=== PATIENT | female | born 1985 | race Caucasian/White ===

== ENCOUNTER → 2018-12-31 | Outpatient (CLI) | payer OTHER ==
--- NOTE | 2019-01-01 07:44 | MM ---
Reason for exam: clinical finding. Indicated problem(s): pain in both breasts. Physical Findings: Nurse did not find any significant physical abnormalities on exam. MG 3D Diag Mammo W/Cad JARED Bilateral CC and MLO view(s) were taken. The breast tissue is heterogeneously dense. This may lower the sensitivity of mammography. Tiny nodularity in the left axilla. There is no discrete abnormality. These results were verbally communicated with the patient and result sheet given to the patient on 12/31/18. ASSESSMENT: Negative, BI-RAD 1 RECOMMENDATION: Routine screening mammogram of both breasts at age 40. Manage on a clinical basis with regard to bilateral breast pain.
== END | disposition home or self-care (01) ==
LOC: RADMAMWWP 14:17
PROVIDERS: ATTEND Internal Medicine
DX: N64.4 Mastodynia (principal)
CPT/HCPCS: 77062; 77066

== ENCOUNTER → 2021-08-04 | Outpatient (CLI) | payer OTHER ==
--- NOTE | 2021-08-05 06:42 | MR ---
EXAMINATION TYPE: MR liver wo/w con DATE OF EXAM: 08/04/2021 COMPARISON: None HISTORY: No prior, hepatomegaly, frequent bowel movements CONTRAST: Standard multiplanar, multisequence MRI departmental protocol images were obtained without contrast a nd with 10 mL intravenous Gadavist gadolinium contrast. Liver has normal size. The bile ducts are not dilated. Liver measures 18 cm in length. There is rounded 3 cm mass in the inferior right lobe of the liver. This shows progressive nodular en hancement on the delayed contrast images and consistent with hemangioma. The bile ducts are not dilat ed. Gallbladder appears normal. There is no evidence of pancreatic mass. Spleen is intact. The pancre atic duct appears normal. There is normal enhancement of the kidneys. There is normal enhancement of the portal venous system. There is no evidence of ascites. There is no adrenal mass. There is no sign of pleural effusion. Hear t size is normal. IMPRESSION: There is a hemangioma in the inferior right lobe of the liver. Liver has normal size.
== END | disposition home or self-care (01) ==
LOC: RADMRIMAIN 08:03
PROVIDERS: ATTEND Internal Medicine
DX: D18.00 Hemangioma unspecified site (principal)
CPT/HCPCS: 74183; A9585

== ENCOUNTER → 2022-05-21 | Outpatient (CLI) | payer OTHER ==
--- NOTE | 2022-05-22 07:18 | US ---
EXAMINATION TYPE: US transvaginal DATE OF EXAM: 05/21/2022 COMPARISON: NONE CLINICAL HISTORY: N92.0 EXCESSIVE AND FREQUENT MENSTRUATION WITH REG. Excessive bleeding on menses. G 2P2. TECHNIQUE: . Transvaginal sonographic images of the pelvis were acquired. Date of LMP: Mid april EXAM MEASUREMENTS: Uterus: 11.9 x 7.3 x 5.1 cm Endometrial Stripe: 1.3 cm Right Ovary: 2.4 x 1.8 x 2.1 cm Left Ovary: 3.5 x 2.2 x 2.1 cm 1. Uterus: Anteverted Thickening of posterior myometrium. Possible fibroid measuring 5.1 x 4.3 x 3 .4cm. Multiple nabothian cysts visualized in cervix 2. Endometrium: wnl 3. Right Ovary: wnl 4. Left Ovary: wnl 5. Bilateral Adnexa: wnl 6. Posterior cul-de-sac: wnl IMPRESSION: 1. No evidence of acute process. 2. Suspected uterine fibroid in the posterior fundus. 3. Ovaries have a normal morphologic appearance.
== END | disposition home or self-care (01) ==
LOC: RADUSWWP 16:51
PROVIDERS: ATTEND Obstetrics & Gynecology
DX: N92.0 Excessive and frequent menstruation with regular cycle (principal)
CPT/HCPCS: 76830

== ENCOUNTER 2022-07-09 05:53 | Day surgery (SDC) | payer OTHER ==
--- NOTE | 2022-07-08 12:52 | P.HPOB ---
History of Present Illness H&P Date: 07/08/22 Chief Complaint: Menorrhagia This patient is a pleasant 36 yr female who is presenting for an endometrial ablation secondary to menorrhagia. She has had a long history of heavy menstrual bleeding. Pelvic ultrasound demonstrated a 5 cm posterior fibroid, but normal endometrial cavity. She does not want hormone therapy and is requesting trial of ablation for treatment. has had a vasectomy and she is done having children. Review of Systems Genitourinary: Reports as per HPI Menstruation: Reports period heavy Past Medical History Past Medical History: GERD/Reflux Additional Past Medical History / Comment(s): heavy periods. occasional heartburn. History of Any Multi-Drug Resistant Organisms: None Reported Additional Past Surgical History / Comment(s): left wrist bone spur removal. wisdon teeth Past Anesthesia/Blood Transfusion Reactions: No Reported Reaction Additional Past Anesthesia/Blood Transfusion Reaction / Comment(s): no blood transfusions Past Psychological History: No Psychological Hx Reported Smoking Status: Former smoker Past Alcohol Use History: None Reported Past Drug Use History: None Reported - Past Family History Father Family Medical History: No Reported History Medications and Allergies Home Medications Medication Instructions Recorded Confirmed Type No Known Home Medications 07/05/22 07/05/22 History Allergies Allergy/AdvReac Type Severity Reaction Status Date / Time No Known Allergies Allergy Verified 07/05/22 08:07 Exam - OBG Physical Exam Abdomen: bowel sounds normal, no diffuse tenderness, no bruit present, no guarding noted, no hepatomegaly, no splenomegaly, no mass Vulva: both: normal Vagina: normal moisture, no discharge Cervix: no lesion, no discharge Uterus: enlarged Results Transvaginal ultrasound as above. Assessment and Plan Assessment: This is a pleasant 36 yr female with menorrhagia and known uterine fibroid who is requesting trial of endometrial ablation for treatment. Plan is hysteroscopy, D&C and Novasure endometrial ablation. I have discussed this surgery and risks with the patient including : infection, bleeding, and/or uterine perforation with thermal injury. All of her questions were answered and a written consent obtained. (1) Menorrhagia Status: Acute Code(s): N92.0 - EXCESSIVE AND FREQUENT MENSTRUATION WITH REGULAR CYCLE SNOMED Code(s): 078544643
[~2022-07-09 05:53] MED LIST: Pre Op ABX Message 1 EACH MISC MISCELLANE ONE
[2022-07-09] MEDS ORDERED: SCOPOLAMINE 1 MG/72 HR PATCH TRANSDERM ONE (06:07)
[2022-07-09] MEDS ORDERED: DEXAMETHASONE SOD PHOSPHATE 4 MG/ML 1 ML VIAL IV ONE (06:07)
[2022-07-09] MEDS ORDERED: LACTATED RINGERS 1,000 ML IV SCH (06:07)
[2022-07-09] MEDS ORDERED: MIDAZOLAM 2 MG/2 ML VIAL IV PRN (06:07)
[2022-07-09] MEDS ORDERED: ONDANSETRON 4 MG/2 ML VIAL IVP ONE (06:07)
[2022-07-09] MEDS ORDERED: MIDAZOLAM 2 MG/2 ML VIAL ONE (06:55)
[2022-07-09] MEDS ORDERED: PROPOFOL 10 MG/ML 20 ML VIAL IV ONE (06:55)
[2022-07-09] MEDS ORDERED: LIDOCAINE 2% INJ 20 MG/ML (2 ML VIAL) ONE (06:55)
[2022-07-09] MEDS ORDERED: fentaNYL (PF) 50 MCG/ML 2 ML AMP ONE (06:55)
[2022-07-09] MEDS ORDERED: KETOROLAC 15 MG/ML 1 ML VIAL ONE (06:55)
[2022-07-09] MEDS ORDERED: HYDROmorphone 0.5 MG/0.5 ML SYRINGE IVP PRN (07:00)
--- NOTE | 2022-07-09 07:32 | P.OP ---
Date of Procedure: 07/09/22 Preoperative Diagnosis: Menorrhagia Postoperative Diagnosis: Same Procedure(s) Performed: #1: Hysteroscopy. #2: Dilation and curettage. 3: NovaSure endometrial ablation Anesthesia: other (LMA) Surgeon: Marlon Schroeder Estimated Blood Loss (ml): 10 Urine output (ml): 10 Pathology: other (Uterine curettings) Condition: stable Disposition: PACU Indications for Procedure: Please see dictated H&P for intimate details of this patient's admission. Brief summary this pleasant 36-year-old 2 para 2 female who presented to my office requesting endometrial ablation secondary to refractory menorrhagia and known uterine fibroid. Patient and I discussed the surgery and risks and risks of infection, bleeding, possible uterine perforation, and/or thermal injury. All the patient's questions are answered and a written consent is obtained. Operative Findings: The uterine cavity measured to 11 cm. There is no obvious fibroids, polyps, or impingement on the uterine cavity itself. Description of Procedure: This patient is taken to the operating room where she is laid in the supine position. She subsequently undergoes general anesthesia without incident. With an adequate level of anesthesia she's placed in dorsal lithotomy position. This time she has a vaginal and perineal prep and drape. Examination under anesthesia shows a mid position uterus slightly enlarged. A weighted speculum was placed in the posterior vagina. The bladder is drained for 10 mL of clear urine. At this time an Allis clamp was placed on the anterior lip of the cervix. The uterus is then gently sounded to approximately 11 cm. With this done the cervix is dilated to allow the hysteroscope into the uterine cavity. Using saline solution hysteroscopy is performed and the uterine cavity is measured a length of 6.5 cm. There is no obvious polyps, fibroids or other growths. With this done the hysteroscope was removed. The cervix is dilated more to allow a sharp curette easily uterine cavity. A gentle but thorough 4 quadrant curettage is then done for adequate tissue. This completed the NovaSure device is then opened and set at a length of 6.5 cm. It is seated in place and opens up to a width of 3.5 cm. With this done it passes the cavity integrity test. The NovaSure device is then enabled at 125 W setting for 66 seconds. NovaSure device is then removed and appears to be intact. Finally hys teroscopy is performed again and the uterine cavity appears to be ablated up to the endocervix. Excellent results are noted. The Allis clamp and weighted speculum were removed. All counts are correct 3. There are no complications. Patient is awakened from anesthesia and taken to the recovery room in satisfactory condition.
[2022-07-09 07:36] VITALS: RESP 16; TEMP 97.3
[2022-07-09 08:40] VITALS: BP 109/67; PULSE 54
== END 2022-07-09 08:57 | disposition home or self-care (01) ==
LOC: OR 05:53
PROVIDERS: ATTEND Obstetrics & Gynecology
DX: N85.8 Other specified noninflammatory disorders of uterus (principal); D25.9 Leiomyoma of uterus, unspecified; K21.9 Gastro-esophageal reflux disease without esophagitis; Z98.890 Other specified postprocedural states; Z87.891 Personal history of nicotine dependence
CPT/HCPCS: 81025; 58563; J2250; J1100; J2405; J3010; J1885; J2704; J2001; 88305

== ENCOUNTER → 2023-01-20 | Outpatient (CLI) | payer OTHER ==
[2023-01-20 15:48] LABS: Basophils # (A) 0.03 X 10*3/uL (0.00-0.10); Basophils % (A) 0.5 %; Eosinophils % (A) 1.7 %; HCT 37.9 % (37.2-46.3); HGB 12.5 d/dL (12.0-15.0); Lymphocytes # (A) 1.79 X 10*3/uL (0.90-5.00); Lymphocytes % (A) 29.9 %; MCH 31.3 pg (27.0-32.0); MCV 94.8 FL (80.0-97.0); Mean Platelet Volume 10.1 FL (9.5-12.2); Monocytes # (A) 0.35 X 10*3/uL (0.20-1.00); Monocytes % (A) 5.9 %; NRBC Per 100 WBC 0 X 10*3/uL (0.00-0.01); Neutrophils # (A) 3.69 X 10*3/uL (1.80-7.70); Neutrophils % (A) 61.7 %; Platelet Count 269 X 10*3/uL (140-440); RDW 13.5 % (11.5-14.5); WBC 5.98 X 10*3/uL (4.50-10.00)
[2023-01-20 16:05] LABS: ALT 30 U/L (8-44); AST 21 U/L (13-35); Albumin 4.9 d/dL (3.8-4.9); Albumin/Globulin Ratio 1.75 Ratio (1.60-3.17); Alkaline Phosphatase 63 U/L (41-126); BUN/Creat Ratio 17.71 Ratio (12.00-20.00); Blood Urea Nitrogen 12.4 mg/dL (9.0-27.0); Calcium 9.9 mg/dL (8.7-10.3); Carbon Dioxide 24.7 mmol/L (21.6-31.8); Chloride 106 mmol/L (96-109); Chol/HDL Ratio 3.99 Ratio; Globulin 2.8 d/dL (1.6-3.3); Glucose 91 mg/dL (70-110); LDL Cholesterol,Calculated 107.5 mg/dL (0.0-131.0); Sodium 141 mmol/L (135-145); Total Bilirubin 0.3 mg/dL (0.3-1.2); Total Protein 7.7 d/dL (6.2-8.2)
== END | disposition home or self-care (01) ==
LOC: LABWHC1 10:54
PROVIDERS: ATTEND Internal Medicine
DX: Z11.59 Encounter for screening for other viral diseases (principal); E78.1 Pure hyperglyceridemia
CPT/HCPCS: 36415; 80053; 80061; 84443; 85025; 86803